=== PATIENT | male | born 1970 | race Caucasian/White ===

== ENCOUNTER 2019-12-30 16:20 | Emergency (ER) | payer MEDICAID, MEDICARE ==
[~2019-12-30] VITALS: Ht 175.3 cm; Wt 131.5 kg
[2019-12-30 21:27] LABS: Basophils # (auto) 0.1 10 ^3/uL (0-0.2); Basophils % (auto) 0.7 % (0.0-2.0); Eosinophils # (auto) 0.1 10 ^3/uL (0-0.8); Eosinophils % (auto) 1.1 % (0.0-7.0); Hematocrit 46.2 % (41.0-53.0); Hemoglobin 15.2 g/dL (13.5-17.5); Lymphocytes # (auto) 2.4 10 ^3/uL (0.4-5.4); Lymphocytes % (auto) 17.4 % (10.0-50.0); Mean Corpuscular Hemoglobin 27.4 pg (28.0-32.0); Mean Corpuscular Volume 83.1 fL (80.0-100.0); Monocytes # (auto) 0.8 10 ^3/uL (0-1.3); Monocytes % (auto) 5.7 % (0.0-12.0); Neutrophils # (auto) 10.2 10 ^3/uL (1.6-8.6); Neutrophils % (auto) 75.1 % (37.0-80.0); Nucleated Red Blood Cells % 0.1 %; Platelet Count (auto) 264 10^3/uL (140-450); Red Blood Cells 5.56 10^6/uL (4.5-5.90); Red Cell Distribution Width 14.3 % (11.8-14.3); White Blood Cell 13.5 10^3/uL (4.4-10.8)
[2019-12-30 21:41] LABS: Alanine Aminotransferase 27 U/L (16-61); Anion Gap 9 (5-15); Aspartate Aminotransferase 14 U/L (15-37); BUN/Creatinine Ratio 17.5; Blood Urea Nitrogen 14 mg/dL (7-18); Calcium 9.2 mg/dL (8.5-10.1); Carbon Dioxide 28 mmol/L (21-32); Chloride 102 mmol/L (98-107); GFR African American 132 mL/min; GFR Non-African American 109 mL/min; Glucose 89 mg/dL (74-106); Potassium 3.6 mmol/L (3.5-5.1); Sodium 139 mmol/L (136-145)
[2019-12-30 21:44] LABS: INR 1.03 (0.9-1.15); Partial Thromboplastin Time 26.8 sec (23.0-31.2)
[2019-12-30 21:46] LABS: Alkaline Phosphatase 77 U/L (45-117); Bilirubin, Total 0.6 mg/dL (0.2-1.0); Total Protein 8.3 g/dL (6.4-8.2)
[2019-12-30 23:34] VITALS: BP 157/112
[2019-12-31] MEDS ORDERED: cefTRIAXone W LIDOCAINE 1 GM IM IM ONE (01:00)
[2019-12-31] MEDS ORDERED: CLINDAMYCIN HCL 150 MG CAP PO ONE (01:15)
[2019-12-31] MEDS ORDERED: cefTRIAXone SOD 1,000 MG VL ONE (01:17)
[2019-12-31] MEDS ORDERED: CLINDAMYCIN HCL 150 MG CAP ONE ×2 (01:19→01:20)
[2019-12-31] MEDS ORDERED: ADENOSINE 110 MG in GIVE UN-DILUTED 0 ML IV ONE (07:30)
== END 2019-12-31 01:25 | disposition home or self-care (01) ==
LOC: ER 16:20
DX: S92.322A Displaced fracture of second metatarsal bone, left foot, initial encounter for closed fracture (principal); S93.105A Unspecified dislocation of left toe(s), initial encounter; L03.116 Cellulitis of left lower limb; I11.0 Hypertensive heart disease with heart failure; I50.9 Heart failure, unspecified; J44.9 Chronic obstructive pulmonary disease, unspecified; E78.5 Hyperlipidemia, unspecified; Z20.828 Contact with and (suspected) exposure to other viral communicable diseases; W11.XXXA Fall on and from ladder, initial encounter; Y93.89 Activity, other specified; Y92.89 Other specified places as the place of occurrence of the external cause; Y99.8 Other external cause status
CPT/HCPCS: 36415; 71045; 73100; 73700; 80053; 83605; 83880; 84484; 85025; 85610; 85730; 87040; 87426; 96372; 99285; J0696